=== PATIENT | female | born 1950 | race Caucasian/White ===

== ENCOUNTER 2021-03-30 10:18 | Inpatient (IN) ==
[2021-03-30] MEDS ORDERED: Nystatin Cream 15 GM TUBE TP PRN (17:02)
[2021-03-30] MEDS ORDERED: *HR* OxyCODONE/APAP 5/325 TABLET PO PRN (17:02)
[2021-03-30] MEDS ORDERED: Triamcinolone Acet 0.1% CRM 15 GM TUBE TP PRN (17:02)
[2021-03-30] MEDS ORDERED: QUEtiapine Fumarate 25 MG TABLET PO SCH (21:00)
[2021-03-30] MEDS: *HR* Glimepiride 2 MG TABLET PO SCH (21:14)
[2021-03-30] MEDS: Sulfamethoxazole/Trimeth DS 1 EACH TABLET PO SCH (21:14)
[2021-03-30] MEDS: Lactobacillus 1 EACH CAP.SPRINK PO SCH (21:14)
[2021-03-30] MEDS: Isosorbide MONOnitrate (24 HR) 30 MG TAB.ER.24H PO SCH (21:15)
[2021-03-30] MEDS: cephALEXin 500 MG CAPSULE PO SCH (21:15)
[2021-03-31] MEDS: Levothyroxine 25 MCG TABLET PO SCH (05:48)
[2021-03-31] MEDS: *HR* Enoxaparin 40 MG/0.4 ML SYRINGE SQ SCH (05:49)
[2021-03-31] MEDS: Aspirin 81 MG TAB.CHEW PO SCH ×3 (05:49→19:44)
[2021-03-31 07:20] LABS: Basophils # 0.1 K/mcL (0.0-0.2); Basophils % 0.7 %; Eosinophils # 0.4 K/mcL (0.0-0.6); Eosinophils % 3.9 %; Hematocrit 28.9 % (35.3-44.9); Immature Granulocytes % 0.5 % (0-4); Lymphocytes # 2.4 K/mcL (0.6-4.6); Lymphocytes % 22.1 %; Mean Corpuscular HGB Conc 31.1 g/dL (31.6-35.5); Mean Corpuscular Hemoglobin 27.7 pg (28.0-33.3); Mean Corpuscular Volume 88.9 fL (83.0-100.0); Mean Platelet Volume 9.8 fL (9.4-12.4); Monocytes # 0.8 K/mcL (0.0-1.3); Monocytes % 7.4 %; Platelet Count 333 K/mcL (140-400); Red Blood Count 3.25 M/mcL (3.82-4.97); Red Cell Distribution Width 15.8 % (11.5-14.5); Segmented Neutrophils % 65.4 %; White Blood Count 10.8 K/mcL (4.3-11.1)
[2021-03-31 07:38] LABS: BUN/Creatinine Ratio 23 (6-26); Blood Urea Nitrogen 23 mg/dL (8-23); Calcium 9.4 mg/dL (8.6-10.3); Carbon Dioxide 27 mEq/L (23-29); Chloride 102 mEq/L (98-107); Glucose 95 mg/dL (70-105); Osmolality,Calculated 287 (280-300); Sodium 137 mEq/L (136-145); eGFR For African Americans > 60 (> 60); eGFR For Non-African Americans 55 (> 60)
[2021-03-31] MEDS: Cholecalciferol (D-3) 1,000 UNIT (25MCG) TABLET PO SCH (08:26)
[2021-03-31] MEDS: Vitamin B Complex/Vit C/Vit E 1 EACH TABLET PO SCH (08:26)
[2021-03-31] MEDS: cephALEXin 500 MG CAPSULE PO SCH ×3 (08:26→19:45)
[2021-03-31] MEDS: Sulfamethoxazole/Trimeth DS 1 EACH TABLET PO SCH ×2 (08:26→19:45)
[2021-03-31] MEDS: NIFEdipine XL (24 HR) 30 MG TAB.ER.24 PO SCH (08:26)
[2021-03-31] MEDS: Lactobacillus 1 EACH CAP.SPRINK PO SCH ×2 (08:26→19:45)
[2021-03-31] MEDS: lisinopriL 10 MG TABLET PO SCH (08:26)
[2021-03-31] MEDS: Isosorbide MONOnitrate (24 HR) 30 MG TAB.ER.24H PO SCH ×2 (08:27→19:45)
[2021-03-31] MEDS: carvediloL 6.25 MG TABLET PO SCH ×2 (08:27→16:47)
[2021-03-31] MEDS: *HR* Glimepiride 2 MG TABLET PO SCH ×2 (08:28→19:44)
[2021-03-31] MEDS: BuPROPion XL (24 HR) 150 MG TABLET PO SCH (08:28)
[2021-03-31 16:30] LABS: Bilirubin,Urine Negative (Negative); Blood,Urine Negative (Negative); Clarity,Urine Clear (Clear); Color,Urine Yellow (Yellow); Glucose,Urine (UA) Normal (Normal); Ketones,Urine Negative (Negative); Leukocyte Esterase,Urine Negative (Negative); Nitrite,Urine Negative (Negative); Protein,Urine Negative (Neg-Trace); Specific Gravity,Urine >= 1.030 (1.010-1.025); Urobilinogen,Urine Normal (Normal)
[2021-03-31] MEDS: haloperidoL 1 MG TABLET PO PRN ×2 (16:36→19:45)
[2021-03-31] MEDS: QUEtiapine Fumarate 25 MG TABLET PO SCH (19:45)
[2021-04-01] MEDS: *HR* Enoxaparin 40 MG/0.4 ML SYRINGE SQ SCH (05:28)
[2021-04-01] MEDS: Levothyroxine 25 MCG TABLET PO SCH (05:29)
[2021-04-01 05:56] LABS: Hematocrit 32.3 % (35.3-44.9); Hemoglobin 10.1 g/dL (11.5-15.4); Mean Corpuscular HGB Conc 31.3 g/dL (31.6-35.5); Mean Corpuscular Hemoglobin 27.7 pg (28.0-33.3); Mean Corpuscular Volume 88.5 fL (83.0-100.0); Mean Platelet Volume 9.3 fL (9.4-12.4); Platelet Count 358 K/mcL (140-400); Red Blood Count 3.65 M/mcL (3.82-4.97); Red Cell Distribution Width 15.7 % (11.5-14.5); White Blood Count 13.2 K/mcL (4.3-11.1)
[2021-04-01 06:18] LABS: Alanine Aminotransferase 11 Units/L (7-52); Albumin 3.8 g/dL (3.5-5.7); Albumin/Globulin Ratio 1.2 (1.1-2.2); Alkaline Phosphatase 74 Units/L (34-104); Aspartate Amino Transferase 14 Units/L (13-39); BUN/Creatinine Ratio 23 (6-26); Bilirubin,Total 0.5 mg/dL (0.3-1.0); Blood Urea Nitrogen 21 mg/dL (8-23); Calcium 10.2 mg/dL (8.6-10.3); Carbon Dioxide 25 mEq/L (23-29); Chloride 103 mEq/L (98-107); Globulin 3.1 g/dL (2.4-3.5); Glucose 111 mg/dL (70-105); Osmolality,Calculated 292 (280-300); Sodium 139 mEq/L (136-145); Total Protein 6.9 g/dL (6.4-8.9); eGFR For African Americans > 60 (> 60); eGFR For Non-African Americans 59 (> 60)
[2021-04-01 09:09] LABS: C-Reactive Protein 32 mg/L (Less than 10)
[2021-04-01] MEDS: BuPROPion XL (24 HR) 150 MG TABLET PO SCH (11:31)
[2021-04-01] MEDS: Lactobacillus 1 EACH CAP.SPRINK PO SCH ×2 (11:31→21:20)
[2021-04-01] MEDS: cephALEXin 500 MG CAPSULE PO SCH ×3 (11:32→21:20)
[2021-04-01] MEDS: *HR* Glimepiride 2 MG TABLET PO SCH ×2 (11:32→21:20)
[2021-04-01] MEDS: lisinopriL 10 MG TABLET PO SCH (11:32)
[2021-04-01] MEDS: NIFEdipine XL (24 HR) 30 MG TAB.ER.24 PO SCH (11:32)
[2021-04-01] MEDS: Cholecalciferol (D-3) 1,000 UNIT (25MCG) TABLET PO SCH (11:32)
[2021-04-01] MEDS: Aspirin 81 MG TAB.CHEW PO SCH ×2 (11:32→21:20)
[2021-04-01] MEDS: carvediloL 6.25 MG TABLET PO SCH ×2 (11:33→18:20)
[2021-04-01] MEDS: Sulfamethoxazole/Trimeth DS 1 EACH TABLET PO SCH ×2 (11:34→21:20)
[2021-04-01] MEDS: Isosorbide MONOnitrate (24 HR) 30 MG TAB.ER.24H PO SCH ×2 (11:34→21:21)
[2021-04-01] MEDS: Vitamin B Complex/Vit C/Vit E 1 EACH TABLET PO SCH (11:34)
[2021-04-01] MEDS ORDERED: Isovue-370 500 ML BOTTLE IVP ONE (13:31)
[2021-04-01] MEDS: QUEtiapine Fumarate 25 MG TABLET PO SCH (21:20)
[2021-04-01] MEDS: haloperidoL 1 MG TABLET PO PRN (21:20)
[2021-04-02] MEDS ORDERED: *HR* LORazepam 2 MG/ML VIAL IVP ONE (04:13)
[2021-04-02] MEDS: Levothyroxine 25 MCG TABLET PO SCH (04:59)
[2021-04-02] MEDS: *HR* Enoxaparin 40 MG/0.4 ML SYRINGE SQ SCH (05:06)
[2021-04-02] MEDS: Cholecalciferol (D-3) 1,000 UNIT (25MCG) TABLET PO SCH (11:57)
[2021-04-02] MEDS: BuPROPion XL (24 HR) 150 MG TABLET PO SCH (11:57)
[2021-04-02] MEDS: NIFEdipine XL (24 HR) 30 MG TAB.ER.24 PO SCH (11:57)
[2021-04-02] MEDS: Isosorbide MONOnitrate (24 HR) 30 MG TAB.ER.24H PO SCH ×2 (11:57→22:00)
[2021-04-02] MEDS: cephALEXin 500 MG CAPSULE PO SCH ×2 (11:57→15:43)
[2021-04-02] MEDS: Vitamin B Complex/Vit C/Vit E 1 EACH TABLET PO SCH (11:57)
[2021-04-02] MEDS: Aspirin 81 MG TAB.CHEW PO SCH ×2 (11:57→22:00)
[2021-04-02] MEDS: *HR* Glimepiride 2 MG TABLET PO SCH ×2 (11:57→22:00)
[2021-04-02] MEDS: lisinopriL 10 MG TABLET PO SCH (11:58)
[2021-04-02] MEDS: Lactobacillus 1 EACH CAP.SPRINK PO SCH ×2 (11:58→22:00)
[2021-04-02] MEDS: carvediloL 6.25 MG TABLET PO SCH ×2 (11:58→15:43)
[2021-04-02] MEDS: Sulfamethoxazole/Trimeth DS 1 EACH TABLET PO SCH (12:21)
[2021-04-02 17:47] LABS: Basophils # 0.1 K/mcL (0.0-0.2); Eosinophils # 0.3 K/mcL (0.0-0.6); Hemoglobin 9.7 g/dL (11.5-15.4); Immature Granulocytes % 0.3 % (0-4); Lymphocytes % 20.3 %; Mean Corpuscular HGB Conc 30.3 g/dL (31.6-35.5); Mean Corpuscular Hemoglobin 27.6 pg (28.0-33.3); Mean Corpuscular Volume 90.9 fL (83.0-100.0); Mean Platelet Volume 9.7 fL (9.4-12.4); Monocytes # 0.7 K/mcL (0.0-1.3); Monocytes % 7.4 %; Neutrophils # 6.7 K/mcL (1.6-8.9); Platelet Count 390 K/mcL (140-400); Red Blood Count 3.52 M/mcL (3.82-4.97); Red Cell Distribution Width 16.1 % (11.5-14.5); White Blood Count 9.8 K/mcL (4.3-11.1)
[2021-04-02 18:00] LABS: BUN/Creatinine Ratio 22 (6-26); Blood Urea Nitrogen 24 mg/dL (8-23); Calcium 9.9 mg/dL (8.6-10.3); Carbon Dioxide 29 mEq/L (23-29); Chloride 103 mEq/L (98-107); Glucose 103 mg/dL (70-105); Osmolality,Calculated 294 (280-300); Potassium 4.6 mEq/L (3.5-5.1); Sodium 140 mEq/L (136-145); eGFR For African Americans > 60 (> 60); eGFR For Non-African Americans 50 (> 60)
[2021-04-02 18:17] LABS: Thyroid Stimulating Hormone 0.634 mcIU/mL (0.340-5.600)
[2021-04-02] MEDS: QUEtiapine Fumarate 25 MG TABLET PO SCH (22:00)
[2021-04-02] MEDS: Acetaminophen 325 MG TABLET PO PRN (22:01)
[2021-04-03] MEDS: Levothyroxine 25 MCG TABLET PO SCH (10:09)
[2021-04-03] MEDS: Cholecalciferol (D-3) 1,000 UNIT (25MCG) TABLET PO SCH (10:09)
[2021-04-03] MEDS: Lactobacillus 1 EACH CAP.SPRINK PO SCH ×2 (10:09→20:04)
[2021-04-03] MEDS: BuPROPion XL (24 HR) 150 MG TABLET PO SCH (10:09)
[2021-04-03] MEDS: NIFEdipine XL (24 HR) 30 MG TAB.ER.24 PO SCH (10:09)
[2021-04-03] MEDS: lisinopriL 10 MG TABLET PO SCH (10:09)
[2021-04-03] MEDS: Aspirin 81 MG TAB.CHEW PO SCH ×2 (10:10→20:04)
[2021-04-03] MEDS: carvediloL 6.25 MG TABLET PO SCH ×2 (10:10→17:02)
[2021-04-03] MEDS: Vitamin B Complex/Vit C/Vit E 1 EACH TABLET PO SCH (10:10)
[2021-04-03] MEDS: *HR* Glimepiride 2 MG TABLET PO SCH ×2 (10:10→20:05)
[2021-04-03] MEDS: *HR* Enoxaparin 40 MG/0.4 ML SYRINGE SQ SCH (10:11)
[2021-04-03] MEDS: Isosorbide MONOnitrate (24 HR) 30 MG TAB.ER.24H PO SCH ×2 (10:11→20:04)
[2021-04-03] MEDS: Acetaminophen 325 MG TABLET PO PRN ×2 (10:12→20:05)
[2021-04-03] MEDS ORDERED: NON-FORMULARY MEDICATION 1 EACH EACH (Alendronate Sodium [Fosamax] 70 MG Tablet) PO SCH (17:02)
[2021-04-03] MEDS: QUEtiapine Fumarate 25 MG TABLET PO SCH (20:04)
[2021-04-04] MEDS ORDERED: *HR* Dextrose 50 % in Water (Syg) 50 ML SYRINGE IVP PRN (00:08)
[2021-04-04] MEDS ORDERED: Dextrose Gel 15 GM/37.5 ML TUBE PO PRN ×2 (00:08)
[2021-04-04] MEDS ORDERED: D5% in Water 1,000 ML IVC PRN (00:08)
[2021-04-04] MEDS ORDERED: *HR* Dextrose 50 % in Water (Syg) 50 ML SYRINGE ONE (00:19)
[2021-04-04] MEDS: Acetaminophen 325 MG TABLET PO PRN ×2 (04:05→20:21)
[2021-04-04] MEDS: Levothyroxine 25 MCG TABLET PO SCH (04:05)
[2021-04-04] MEDS: *HR* Enoxaparin 40 MG/0.4 ML SYRINGE SQ SCH (04:06)
[2021-04-04] MEDS: Cholecalciferol (D-3) 1,000 UNIT (25MCG) TABLET PO SCH (08:44)
[2021-04-04] MEDS: BuPROPion XL (24 HR) 150 MG TABLET PO SCH (08:44)
[2021-04-04] MEDS: NIFEdipine XL (24 HR) 30 MG TAB.ER.24 PO SCH (08:44)
[2021-04-04] MEDS: Vitamin B Complex/Vit C/Vit E 1 EACH TABLET PO SCH (08:45)
[2021-04-04] MEDS: Isosorbide MONOnitrate (24 HR) 30 MG TAB.ER.24H PO SCH ×2 (08:45→20:21)
[2021-04-04] MEDS: Aspirin 81 MG TAB.CHEW PO SCH ×2 (08:45→20:21)
[2021-04-04] MEDS: carvediloL 6.25 MG TABLET PO SCH ×2 (08:45→16:05)
[2021-04-04] MEDS: Lactobacillus 1 EACH CAP.SPRINK PO SCH ×2 (08:45→20:21)
[2021-04-04] MEDS: lisinopriL 10 MG TABLET PO SCH (08:45)
[2021-04-04] MEDS: *HR* Glimepiride 2 MG TABLET PO SCH (08:46)
[2021-04-04] MEDS ORDERED: *HR* OxyCODONE/APAP 5/325 TABLET PO PRN (09:53)
[2021-04-04] MEDS: *HR* OxyCODONE/APAP 5/325 TABLET PO PRN (16:05)
[2021-04-04] MEDS: QUEtiapine Fumarate 25 MG TABLET PO SCH (20:21)
[2021-04-05 04:49] LABS: Hematocrit 30.8 % (35.3-44.9); Hemoglobin 9.4 g/dL (11.5-15.4); Mean Corpuscular HGB Conc 30.5 g/dL (31.6-35.5); Mean Corpuscular Hemoglobin 27.6 pg (28.0-33.3); Mean Corpuscular Volume 90.6 fL (83.0-100.0); Mean Platelet Volume 10.1 fL (9.4-12.4); Platelet Count 302 K/mcL (140-400); Red Cell Distribution Width 15.8 % (11.5-14.5); White Blood Count 7.1 K/mcL (4.3-11.1)
[2021-04-05 05:04] LABS: Alanine Aminotransferase 13 Units/L (7-52); Albumin 3.4 g/dL (3.5-5.7); Albumin/Globulin Ratio 1.3 (1.1-2.2); Alkaline Phosphatase 60 Units/L (34-104); Aspartate Amino Transferase 14 Units/L (13-39); BUN/Creatinine Ratio 32 (6-26); Bilirubin,Total 0.3 mg/dL (0.3-1.0); Blood Urea Nitrogen 33 mg/dL (8-23); Calcium 9.3 mg/dL (8.6-10.3); Carbon Dioxide 27 mEq/L (23-29); Chloride 104 mEq/L (98-107); Globulin 2.6 g/dL (2.4-3.5); Glucose 113 mg/dL (70-105); Magnesium 1.9 mg/dL (1.6-2.6); Osmolality,Calculated 292 (280-300); Potassium 4.5 mEq/L (3.5-5.1); Sodium 137 mEq/L (136-145); eGFR For African Americans > 60 (> 60); eGFR For Non-African Americans 53 (> 60)
[2021-04-05] MEDS: Levothyroxine 25 MCG TABLET PO SCH (05:30)
[2021-04-05] MEDS: *HR* Enoxaparin 40 MG/0.4 ML SYRINGE SQ SCH (05:30)
[2021-04-05] MEDS: Aspirin 81 MG TAB.CHEW PO SCH ×2 (08:49→23:16)
[2021-04-05] MEDS: Vitamin B Complex/Vit C/Vit E 1 EACH TABLET PO SCH (08:49)
[2021-04-05] MEDS: lisinopriL 10 MG TABLET PO SCH (08:49)
[2021-04-05] MEDS: carvediloL 6.25 MG TABLET PO SCH ×2 (08:49→17:07)
[2021-04-05] MEDS: Isosorbide MONOnitrate (24 HR) 30 MG TAB.ER.24H PO SCH ×2 (08:49→23:16)
[2021-04-05] MEDS: Lactobacillus 1 EACH CAP.SPRINK PO SCH ×2 (08:49→23:16)
[2021-04-05] MEDS: BuPROPion XL (24 HR) 150 MG TABLET PO SCH (08:49)
[2021-04-05] MEDS: Cholecalciferol (D-3) 1,000 UNIT (25MCG) TABLET PO SCH (08:50)
[2021-04-05] MEDS: NIFEdipine XL (24 HR) 30 MG TAB.ER.24 PO SCH (08:50)
[2021-04-05] MEDS: *HR* OxyCODONE/APAP 5/325 TABLET PO PRN ×3 (08:52→23:16)
[2021-04-05] MEDS ORDERED: Neosporin OINT 15 GM TUBE TP PRN (12:58)
[2021-04-05] MEDS: *HR* Glimepiride 2 MG TABLET PO SCH ×2 (13:24→23:16)
[2021-04-05] MEDS ORDERED: *HR* OxyCODONE/APAP 10/325 TABLET PO PRN (16:41)
[2021-04-05] MEDS: QUEtiapine Fumarate 25 MG TABLET PO SCH (23:16)
[2021-04-06] MEDS: Acetaminophen 325 MG TABLET PO PRN (01:46)
[2021-04-06] MEDS: *HR* Enoxaparin 40 MG/0.4 ML SYRINGE SQ SCH (06:39)
[2021-04-06] MEDS: *HR* OxyCODONE/APAP 5/325 TABLET PO PRN ×3 (06:39→21:18)
[2021-04-06] MEDS: Levothyroxine 25 MCG TABLET PO SCH (06:39)
[2021-04-06] MEDS: lisinopriL 10 MG TABLET PO SCH (10:33)
[2021-04-06] MEDS: Lactobacillus 1 EACH CAP.SPRINK PO SCH ×2 (10:33→21:19)
[2021-04-06] MEDS: NIFEdipine XL (24 HR) 30 MG TAB.ER.24 PO SCH (10:33)
[2021-04-06] MEDS: Vitamin B Complex/Vit C/Vit E 1 EACH TABLET PO SCH (10:33)
[2021-04-06] MEDS: BuPROPion XL (24 HR) 150 MG TABLET PO SCH (10:33)
[2021-04-06] MEDS: Cholecalciferol (D-3) 1,000 UNIT (25MCG) TABLET PO SCH (10:33)
[2021-04-06] MEDS: Aspirin 81 MG TAB.CHEW PO SCH ×2 (10:33→21:17)
[2021-04-06] MEDS: *HR* Glimepiride 2 MG TABLET PO SCH ×2 (10:34→21:17)
[2021-04-06] MEDS: carvediloL 6.25 MG TABLET PO SCH ×2 (10:34→17:00)
[2021-04-06] MEDS: Isosorbide MONOnitrate (24 HR) 30 MG TAB.ER.24H PO SCH ×2 (10:35→21:17)
[2021-04-06] MEDS: QUEtiapine Fumarate 25 MG TABLET PO SCH (21:18)
[2021-04-06] MEDS ORDERED: Neosporin OINT 1 APPL PACKET TP PRN (21:30)
[2021-04-07] MEDS: *HR* Enoxaparin 40 MG/0.4 ML SYRINGE SQ SCH (05:12)
[2021-04-07] MEDS: Levothyroxine 25 MCG TABLET PO SCH (05:12)
[2021-04-07] MEDS: Lactobacillus 1 EACH CAP.SPRINK PO SCH ×2 (08:41→21:27)
[2021-04-07] MEDS: Cholecalciferol (D-3) 1,000 UNIT (25MCG) TABLET PO SCH (08:41)
[2021-04-07] MEDS: carvediloL 6.25 MG TABLET PO SCH ×2 (08:41→17:42)
[2021-04-07] MEDS: Vitamin B Complex/Vit C/Vit E 1 EACH TABLET PO SCH (08:41)
[2021-04-07] MEDS: *HR* Glimepiride 2 MG TABLET PO SCH ×2 (08:41→17:42)
[2021-04-07] MEDS: lisinopriL 10 MG TABLET PO SCH (08:42)
[2021-04-07] MEDS: NIFEdipine XL (24 HR) 30 MG TAB.ER.24 PO SCH (08:42)
[2021-04-07] MEDS: Isosorbide MONOnitrate (24 HR) 30 MG TAB.ER.24H PO SCH ×2 (08:42→21:27)
[2021-04-07] MEDS: *HR* OxyCODONE/APAP 5/325 TABLET PO PRN ×3 (08:42→21:33)
[2021-04-07] MEDS: BuPROPion XL (24 HR) 150 MG TABLET PO SCH (08:42)
[2021-04-07] MEDS: Aspirin 81 MG TAB.CHEW PO SCH ×2 (08:42→21:27)
[2021-04-07 20:12] VITALS: O2SAT 93
[2021-04-07] MEDS: QUEtiapine Fumarate 25 MG TABLET PO SCH (21:27)
[2021-04-08] MEDS: *HR* Enoxaparin 40 MG/0.4 ML SYRINGE SQ SCH (06:17)
[2021-04-08] MEDS: Levothyroxine 25 MCG TABLET PO SCH (06:17)
[2021-04-08] MEDS: *HR* OxyCODONE/APAP 5/325 TABLET PO PRN ×2 (06:22→13:56)
[2021-04-08 07:47] VITALS: BP 144/84; PULSE 99; RESP 18; TEMP 98.5
[2021-04-08] MEDS: NIFEdipine XL (24 HR) 30 MG TAB.ER.24 PO SCH (09:16)
[2021-04-08] MEDS: carvediloL 6.25 MG TABLET PO SCH (09:16)
[2021-04-08] MEDS: Aspirin 81 MG TAB.CHEW PO SCH (09:16)
[2021-04-08] MEDS: Cholecalciferol (D-3) 1,000 UNIT (25MCG) TABLET PO SCH (09:16)
[2021-04-08] MEDS: *HR* Glimepiride 2 MG TABLET PO SCH (09:16)
[2021-04-08] MEDS: BuPROPion XL (24 HR) 150 MG TABLET PO SCH (09:16)
[2021-04-08] MEDS: Lactobacillus 1 EACH CAP.SPRINK PO SCH (09:16)
[2021-04-08] MEDS: Vitamin B Complex/Vit C/Vit E 1 EACH TABLET PO SCH (09:16)
[2021-04-08] MEDS: Isosorbide MONOnitrate (24 HR) 30 MG TAB.ER.24H PO SCH (09:17)
[2021-04-08] MEDS: lisinopriL 10 MG TABLET PO SCH (09:17)
== END 2021-04-08 16:00 | disposition home health service (06) | DRG 948 ==
LOC: INPGRE 19:26
PROVIDERS: ADMIT Family Medicine; ATTEND Family Medicine